=== PATIENT | male | born 1960 | race Caucasian/White ===

== ENCOUNTER → 2017-07-26 | Outpatient (CLI) | payer OTHER ==
[2017-07-26] MEDS: GADOBUTROL 7.5 MMOL/7.5 ML VIAL INT ART ×2 (13:46)
[2017-07-26] MEDS: IOHEXOL 300 MG/ML 50 ML VIAL. INT ART ×2 (13:46)
[2017-07-26] MEDS: LIDOCAINE 1% Multi-Dose 20 ML VIAL. ID ×2 (13:46)
== END | disposition home or self-care (01) ==
LOC: KCIC 12:40
DX: S46.911A Strain of unspecified muscle, fascia and tendon at shoulder and upper arm level, right arm, initial encounter (principal); X58.XXXA Exposure to other specified factors, initial encounter; Y93.89 Activity, other specified; Y92.89 Other specified places as the place of occurrence of the external cause; Y99.8 Other external cause status; M94.211 Chondromalacia, right shoulder
CPT/HCPCS: 73040; 73222; A9585; Q9967

== ENCOUNTER → 2017-08-03 | Outpatient (CLI) | payer OTHER ==
[2017-08-03] MEDS: GADOBUTROL 7.5 MMOL/7.5 ML VIAL IV ×2 (11:59)
== END | disposition home or self-care (01) ==
LOC: KCIC MRI 11:20
DX: M54.12 Radiculopathy, cervical region (principal); M47.892 Other spondylosis, cervical region; M25.511 Pain in right shoulder
CPT/HCPCS: 72156; A9585

== ENCOUNTER → 2018-09-02 | Outpatient (CLI) | payer OTHER ==
--- NOTE | 2018-09-02 14:46 | KCIC ---
MR of the left shoulder HISTORY: Left shoulder pain chronically, worse for the last 2 months. TECHNIQUE: Routine multiplanar sequences are obtained. FINDINGS: Acromioclavicular joint is mildly degenerative. Undersurface protuberance of the outer clavicle slightly indents the supraspinatus. Linear full-thickness tear of the anterior supraspinatus footplate attachment measures 1 cm AP diameter, no retraction. Mild generalized tendinosis. No significant subdeltoid bursal fluid. Mild irregularity of the posterosuperior labrum with a tiny para labral cyst, compatible with a small tear. Heterogeneous signal at the anteroinferior labrum without clear-cut detachment. Biceps tendon intact. No bone destruction or acute fracture. No acute soft tissue abnormality. IMPRESSION: 1. Linear full-thickness on retracted rotator cuff tear of the anterior supraspinatus tendon. 2. Small posterosuperior labral tear. 3. Degenerative signal at the anteroinferior labrum without clear-cut detachment. Electronically signed by: Nikhil Early MD (09/02/2018 2:44 PM) [id number]
== END | disposition home or self-care (01) ==
LOC: KCIC MRI 11:00
PROVIDERS: ATTEND Orthopaedic Surgery
DX: S43.492A Other sprain of left shoulder joint, initial encounter (principal); S46.012A Strain of muscle(s) and tendon(s) of the rotator cuff of left shoulder, initial encounter; X58.XXXA Exposure to other specified factors, initial encounter; Y93.89 Activity, other specified; Y92.89 Other specified places as the place of occurrence of the external cause; Y99.8 Other external cause status
CPT/HCPCS: 73221